=== PATIENT | male | born 1990 | race Caucasian/White ===

== ENCOUNTER 2022-08-02 11:02 | Emergency (ER) | payer BC ==
[2022-08-02 11:52] LABS: Bacteria/HPF None Seen HPF (None Seen); Bilirubin Negative (Negative); Blood, Urine Negative (Negative); Clarity Extra Turbid (Clear); Glucose, Urine (Dipstick) Normal (Negative); Ketone, Urine Trace mg/dL (Negative); Leukocyte Negative Leu/uL (Negative); Nitrite Negative (Negative); Protein, Urine (Dipstick) 30 mg/dL (Neg-Trace); RBC/HPF 0-3 HPF (0-3); Specific Gravity, Urine 1.038 (1.002-1.036); Squamous Epithelial None Seen HPF (0-3); WBC/HPF None Seen HPF (0-3)
[2022-08-02] MEDS ORDERED: cefTRIAXone (ROCEPHIN) 500 MG VIAL ONE (12:58)
[2022-08-02] MEDS ORDERED: Lidocaine 1% PF 5 ML VIAL ONE (12:58)
[2022-08-04 21:16] LABS: Chlam.trachomatis by PCR,Urine Not Detected (NotDetected); GC N.gonorrhoeae PCR,UrineVOID Not Detected (NotDetected)
== END 2022-08-02 13:29 | disposition home or self-care (01) ==
LOC: ERS 11:02
DX: N45.3 Epididymo-orchitis (principal); N43.3 Hydrocele, unspecified
CPT/HCPCS: 76870; 81003; 81015; 87491; 87591; 93976; J0696